=== PATIENT | female | born 1980 | race Caucasian/White ===

== ENCOUNTER 2018-02-23 20:13 | Emergency (ER) | payer SELFPAY ==
[~2018-02-23] VITALS: Ht 157.5 cm; Wt 78.9 kg
[2018-02-23 20:19] VITALS: Ht 157.5 cm; Wt 78.9 kg
[2018-02-23 20:59] VITALS: BP 146/90
== END 2018-02-23 20:59 | disposition home or self-care (01) ==
LOC: ED 20:13
DX: R21 Rash and other nonspecific skin eruption (principal); L29.9 Pruritus, unspecified; I10 Essential (primary) hypertension; Z98.51 Tubal ligation status